=== PATIENT | male | born 1945 | race Caucasian/White ===

== ENCOUNTER 2020-01-19 01:19 | Emergency (ER) | payer OTHER, MEDICARE ==
[~2020-01-19] VITALS: Ht 177.8 cm; Wt 85.3 kg
[2020-01-19 01:45] LABS: ABSOLUTE BASOPHILS 0.1 thou/uL (0.0-0.2); ABSOLUTE EOSINOPHILS 0.2 thou/uL (0.0-0.7); ABSOLUTE MONOCYTES 1.2 thou/uL (0.0-1.2); ABSOLUTE NEUTROPHILS 8.3 thou/uL (1.6-8.1); BASOPHILS 1.2 %; EOSINOPHILS 1.9 %; HEMATOCRIT 45.3 % (42.0-52.0); HEMOGLOBIN 15.8 gm/dL (14.0-18.0); LYMPHOCYTES 16.6 %; MCH 29.7 pg (26.0-34.0); MCHC 34.9 g/dL (28.0-37.0); MCV 85.3 fL (80.0-100.0); MONOCYTES 10.4 %; MPV 9.1 fl. (7.2-11.1); NUCLEATED RBCS 0 /100WBC; PLATELET COUNT* 306 thou/uL (150-400); POLYS 69.9 %; RBC 5.31 mil/uL (4.50-6.00); RDW-CV 13.9 % (10.5-14.5); WBC 11.9 thou/uL (4.0-11.0)
[2020-01-19 01:51] LABS: CALCIUM 8.6 mg/dL (8.5-10.1); CREATININE 1.1 mg/dL (0.6-1.3); POTASSIUM 3.5 mmol/L (3.5-5.1)
[2020-01-19 01:52] LABS: INR 1.1; PROTIME 11.2 Seconds (9.20-11.50)
[2020-01-19 02:06] LABS: TOTAL BILIRUBIN 0.4 mg/dL (<0.1-1.0); TOTAL PROTEIN 7.7 g/dL (6.4-8.2)
[2020-01-19] MEDS ORDERED: COZAAR 50 MG TA50 MG PO (02:08)
[2020-01-19] MEDS ORDERED: AMLODIPINE BESY10 MG PO (02:09)
[2020-01-19] MEDS ORDERED: CLONAZEPAM 0.50.5 M1 PO (02:09)
[2020-01-19 02:47] VITALS: BP 138/79
--- NOTE | 2020-01-19 11:51 | EKG ---
[place] [address] ELECTROCARDIOGRAM REPORT Name: MELONY FRANKLIN [id number] Admission: 01/19/20 Attend Phys: Discharge: 01/19/20 Date of : 45 Date of Service: 01/19/20 0123 Report #: [id number] THIS REPORT FOR: //name// [facility] ED Test Date: 2020-01-19 Test Time: 01:23:32 Pat Name: MELONY FRANKLIN Department: Room: Gender: Associate Data Scientist: [place] : 1945 Requested By: Alondra Segovia Order Number: [id number] MD: Walter Reyes Measurements Intervals [place] Rate: 78 P: 57 MO: 186 QRS: 3 QRSD: 94 T: 23 QT: 398 QTc: 454 Interpretive Statements Sinus rhythm No previous ECG available for comparison Electronically Signed On 01-19-2020 11:51:37 CDT by Walter Reyes [email or web address] <ELECTRONICALLY SIGNED> By: Walter Reyes MD, [facility] 01/19/20 1151 0123 0123 Walter Reyes MD, FACC /EPI
== END 2020-01-19 02:47 | disposition home or self-care (01) ==
LOC: M.ERS 01:19
PROVIDERS: Emergency Medicine
DX: T18.128A Food in esophagus causing other injury, initial encounter (principal); I10 Essential (primary) hypertension; X58.XXXA Exposure to other specified factors, initial encounter; Y93.89 Activity, other specified; Y92.89 Other specified places as the place of occurrence of the external cause; Y99.8 Other external cause status